=== PATIENT | male | born 1990 | race Caucasian/White ===

== ENCOUNTER 2016-07-16 20:20 | Inpatient (IN) | payer OTHER ==
[2016-07-16] MEDS ORDERED: IOPAMIDOL-300 100 ML VIAL IVP ONE (21:25)
[2016-07-16] MEDS ORDERED: SODIUM BICARBONATE ABBOJECT 50 MEQ/50 ML SYRINGE ONE (22:45)
[2016-07-16] MEDS ORDERED: LIDOCAINE-MPF 1% 5 ML VIAL ONE (22:45)
[2016-07-16] MEDS ORDERED: LIDOCAINE MPF 1%-EPI 1:200000 30 ML VIAL ONE (22:49)
[2016-07-16] MEDS ORDERED: fentaNYL 100 MCG/2 ML VIAL ONE (23:09)
[2016-07-16] MEDS ORDERED: fentaNYL 100 MCG/2 ML VIAL IVP STA (23:11)
[2016-07-16] MEDS ORDERED: ONDANSETRON 4 MG/2 ML VIAL IVP PRN (23:27)
[2016-07-17] MEDS: HYDROcod/ACETAM 5/325 MG TABLET PO PRN ×5 (00:48→20:07)
[2016-07-17] MEDS: DEXTROSE 5%-0.9% NACL 1,000 ML IV SCH ×3 (00:49→19:30)
[2016-07-17] MEDS: HYDROmorphone 1 MG/ML SYRINGE IVP PRN ×9 (01:06→23:15)
[2016-07-17] MEDS: SODIUM CHLORIDE FLUSH 0.9% 10 ML SYRINGE IVP SCH ×3 (06:28→19:30)
[2016-07-17] MEDS: PANTOPRAZOLE 40 MG TABLET PO SCH (06:33)
[2016-07-17] MEDS: SODIUM CHLORIDE FLUSH 0.9% 10 ML SYRINGE IVP PRN ×3 (08:28→12:16)
[2016-07-18] MEDS: HYDROcod/ACETAM 5/325 MG TABLET PO PRN ×6 (00:09→22:31)
[2016-07-18] MEDS: HYDROmorphone 1 MG/ML SYRINGE IVP PRN ×5 (02:01→11:33)
[2016-07-18] MEDS: DEXTROSE 5%-0.9% NACL 1,000 ML IV SCH (06:08)
[2016-07-18] MEDS: SODIUM CHLORIDE FLUSH 0.9% 10 ML SYRINGE IVP SCH ×3 (06:09→22:30)
[2016-07-18] MEDS: PANTOPRAZOLE 40 MG TABLET PO SCH (06:09)
[2016-07-19] MEDS: HYDROcod/ACETAM 5/325 MG TABLET PO PRN (03:55)
[2016-07-19] MEDS: SODIUM CHLORIDE FLUSH 0.9% 10 ML SYRINGE IVP SCH (06:46)
[2016-07-19] MEDS: PANTOPRAZOLE 40 MG TABLET PO SCH (06:46)
== END 2016-07-19 10:40 | disposition home or self-care (01) | DRG 200 ==
PROC: 0W9930Z Drainage of Right Pleural Cavity with Drainage Device, Percutaneous Approach (ICD-10-PCS; principal; 2016-07-16)
DX: S27.0XXA Traumatic pneumothorax, initial encounter (principal); S22.31XA Fracture of one rib, right side, initial encounter for closed fracture; S27.321A Contusion of lung, unilateral, initial encounter; V27.0XXA Motorcycle driver injured in collision with fixed or stationary object in nontraffic accident, initial encounter; Y92.410 Unspecified street and highway as the place of occurrence of the external cause; F17.220 Nicotine dependence, chewing tobacco, uncomplicated

== ENCOUNTER 2017-09-03 16:33 | Emergency (ER) | payer OTHER ==
[2017-09-03 16:40] VITALS: BP 140/83
--- NOTE | 2017-09-03 17:25 | ED Physician Documentation ---
History of Present Illness - Stated complaint Stated Complaint: LT HAND VS NAIL - Chief complaint Chief Complaint: General - Additonal information Additional information: hx from pt 27 male nail through index L hand think it was embedded in the bone can flex extend finger numbness to distal palmar aspect of finger Review of Systems Skin: reports: Other (puncture) Musculoskeletal: reports: Extremity pain PD PAST MEDICAL HISTORY - Past Medical History Past Medical History: No Cardiovascular: None Respiratory: None Neuro: None Endocrine/Autoimmune: None GI: None : None HEENT: Other Psych: Anxiety Musculoskeletal: Chronic back pain Derm: None - Past Surgical History Past Surgical History: Yes - Present Medications Home Medications: Ambulatory Orders Medication Instructions Recorded Confirmed No Known Home Medications [No 09/03/17 09/03/17 Known Home Medications] - Allergies Allergies/Adverse Reactions: Allergies Allergy/AdvReac Type Severity Reaction Status Date / Time No Known Drug Allergies Allergy Verified 09/03/17 16:39 - Social History Does the pt smoke?: No Smoking Status: Never smoker Does the pt drink ETOH?: Yes ETOH Use: Beer Does the pt have substance abuse?: No - Immunizations Immunizations are current?: Yes - POLST Patient has POLST: No PD ED PE NORMAL - Vitals Vital signs reviewed: Yes - Extremities Extremities: Other (L index with large puncture radial aspect prox phalange and tiny exit puncture ulnar side, _ cap refill, painful but able to fully extend, dec santion to palmar aspect of finger but not in distribution typical for digital nerves) Results - Vitals Vitals: Vital Signs - 24 hr 09/03/17 16:38 Temperature 36.6 C Heart Rate 77 Respiratory 18 Rate Blood Pressure 140/83 H O2 Saturation 100 Oxygen O2 Source Room air - Rads (name of study) finger Radiology: See rad report (+ fx one cortex non displaced no FB) PD MEDICAL DECISION MAKING - ED course ED course: puncture wound / open fx irrigated gave ancef splinted will dc on keflex with close orthopedic follow up Departure - Departure Disposition: 01 Home, Self Care Clinical Impression: Puncture wound Open fracture of finger Qualifiers: Encounter type: initial encounter Finger: index finger Phalanx: proximal Fracture alignment: nondisplaced Laterality: left Qualified Code(s): S62.641B - Nondisplaced fracture of proximal phalanx of left index finger, initial encounter for open fracture Condition: Good Instructions: ED Fx Finger Open, ED Wound Puncture General Follow-Up: [facility] [Provider Group] [facility] [Provider Group] Comments: This injury is at high risk for infection. We washed the finger carefully and gave you an antibiotic shot as well and a prescription for antibiotic pills But it is very important that you follow up with orthopedics for a recheck next week And return to the ER right away if any signs of infection develop over the weekend (redness swelling discharge, worsening pain) Wear the splint at all times except to wash the wounds and apply antibiotic ointment at least once a day Take the antibiotic as prescribed Motrin for mild to moderate pain - only take the vicodin for very severe pain Ice and elevation will help the pain too
[2017-09-03] MEDS ORDERED: IBUPROFEN 400 MG TABLET PO STA (17:26)
--- NOTE | 2017-09-03 17:57 | XRAY Preliminary Report ---
Exam: XR FINGER(S) LT IMPRESSION: Fracture at the dorsal cortex of the distal shaft of the left index finger without fractu re extension to the volar cortex or radiopaque foreign body. [facility] SITE ID: [id number]
--- NOTE | 2017-09-03 17:58 | XRAY Report ---
EXAM: LEFT SECOND DIGIT RADIOGRAPHY EXAM DATE: 09/03/2017 05:33 PM. CLINICAL HISTORY: Nail vs index finger. COMPARISON: None. TECHNIQUE: 3 views. FINDINGS: Bones: There is a transverse irregular cortical lucency at the dorsal aspect of the distal shaft of t he proximal phalanx of the left index finger measuring about 1.5 cm craniocaudal dimension and as muc h as 4 mm in AP dimension based on the lateral view. There are small approximately 2.5 mm long linear vertical bone fragments adjacent to the dorsal cortex on either sides of the osseous defect. The fra cture line does not extend through to the volar cortex. Joints: Normal. No subluxations. Soft Tissues: Mild soft tissue swelling at the left second proximal phalanx. No radiopaque foreign abena dy. IMPRESSION: Fracture at the dorsal cortex of the distal shaft of the left index finger without fractu re extension to the volar cortex or radiopaque foreign body. [facility] Referring Provider Line: [phone] SITE ID: [id number]
[2017-09-03] MEDS ORDERED: ceFAZolin 1 GM VIAL IM STA (18:11)
== END 2017-09-03 18:42 | disposition home or self-care (01) ==
LOC: ED 16:33
DX: S61.231A Puncture wound without foreign body of left index finger without damage to nail, initial encounter (principal); S62.641A Nondisplaced fracture of proximal phalanx of left index finger, initial encounter for closed fracture; W29.4XXA Contact with nail gun, initial encounter
CPT/HCPCS: 73140; 96372; 99283; A9270

== ENCOUNTER 2017-09-23 11:32 | Emergency (ER) | payer OTHER ==
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
[2017-09-23] MEDS ORDERED: LIDOCAINE MPF 1%-EPI 1:200000 30 ML VIAL SUBQ STA (12:34)
[2017-09-23] MEDS ORDERED: IBUPROFEN 600 MG TABLET PO STA (13:01)
[2017-09-23] MEDS ORDERED: ACETAMINOPHEN 325 MG TABLET PO STA (13:01)
[2017-09-23 13:19] VITALS: BP 130/69
[2017-09-23] MEDS ORDERED: BACITRACIN OINT TOP ONE (13:19)
== END 2017-09-23 13:29 | disposition home or self-care (01) ==
LOC: ED 11:32
DX: S81.812A Laceration without foreign body, left lower leg, initial encounter (principal); W29.3XXA Contact with powered garden and outdoor hand tools and machinery, initial encounter; Y99.0 Civilian activity done for income or pay
CPT/HCPCS: 12034; 99282; 99283; A9270

== ENCOUNTER 2017-09-24 07:25 | Emergency (ER) | payer OTHER ==
[2017-09-24 07:32] VITALS: BP 134/83
[2017-09-24] MEDS ORDERED: IBUPROFEN 800 MG TABLET PO STA (07:47)
[2017-09-24] MEDS ORDERED: BACITRACIN OINT TOP STA (07:47)
--- NOTE | 2017-09-24 07:51 | ED Physician Documentation ---
PD HPI WOUND RECHECK - Stated complaint Stated Complaint: WOUND CARE/L CALF - Chief complaint Chief Complaint: Laceration - Histroy obtained from History obtained from: Patient - History of Present Illness Location: Left Lower Extremity Timing - onset: Yesterday Recently seen: Emergency Dept (Yesterday) - Additional information Additional information: The patient is a 27-year-old male who presents for wound check. He cut his left lower leg yesterday with a chainsaw. He was seen in the emergency department here, and the wound was repaired with sutures. He presents this morning stating that when he pulled off the dressing this morning, he thinks some of the sutures came out. He is also requesting something for pain, stating that Tylenol is not helping. Review of Systems Constitutional: denies: Fever Skin: reports: Laceration (s) Musculoskeletal: reports: Extremity pain (Left leg.) PD PAST MEDICAL HISTORY - Past Medical History Cardiovascular: None Respiratory: None Endocrine/Autoimmune: None GI: None : None HEENT: Other Psych: Anxiety Musculoskeletal: Chronic back pain Derm: None - Past Surgical History Past Surgical History: Yes - Present Medications Home Medications: Ambulatory Orders Medication Instructions Recorded Confirmed No Known Home Medications [No 09/23/17 09/23/17 Known Home Medications] - Allergies Allergies/Adverse Reactions: Allergies Allergy/AdvReac Type Severity Reaction Status Date / Time No Known Drug Allergies Allergy Verified 09/03/17 16:39 - Social History Does the pt smoke?: No Smoking Status: Never smoker Does the pt drink ETOH?: Yes Does the pt have substance abuse?: No - Immunizations Immunizations are current?: Yes - POLST Patient has POLST: No PD ED PE NORMAL - Vitals Vital signs reviewed: Yes (Borderline hypertension initially.) - General General: Alert and oriented X 3, Well developed/nourished - HEENT HEENT: Atraumatic - Respiratory Respiratory: No respiratory distress - Derm Derm: No rash - Extremities Extremities: No edema, No calf tenderness / cord, Other (There is a 10 cm laceration on the anterior medial aspect of the left lower leg, with adjacent deep abrasions, consistent with chainsaw injury. The laceration is intact with sutures, and there is no evidence of any sutures being removed. There is no evidence of wound infection.) - Neuro Neuro: Alert and oriented X 3, No motor deficit, No sensory deficit Results - Vitals Vitals: Vital Signs - 24 hr 09/24/17 07:28 Temperature 36.6 C Heart Rate 77 Respiratory 14 Rate Blood Pressure 134/83 H O2 Saturation 100 Oxygen O2 Source Room air PD MEDICAL DECISION MAKING - ED course Complexity details: reviewed old records, d/w patient ED course: The patient presented for wound check, after being seen here yesterday for repair of a chainsaw injury to his left lower leg. His wound is intact, and there is no evidence of sutures being pulled out. Treatment in the emergency department included application of antibiotic ointment and new dressing. Ibuprofen 800 mg was administered orally. I discussed with him the expected course of healing, symptomatic treatment and outpatient follow-up, as well as potentially worrisome signs or symptoms that should prompt reevaluation in the emergency department. Departure - Departure Disposition: 01 Home, Self Care Clinical Impression: Visit for wound check Condition: Stable Instructions: ED Laceration Ext Sutr Stap Tape Comments: Keep your left leg elevated as much the time as possible. You can use ibuprofen, up to 800 mg 3 times daily, if needed for pain. Follow-up for suture removal in 10-12 days. Return to the emergency department if you develop any sign of infection, or otherwise worsening symptoms.
[2017-09-24] MEDS ORDERED: BACITRACIN OINT TOP ONE (07:59)
== END 2017-09-24 08:10 | disposition home or self-care (01) ==
LOC: ED 07:25
DX: S81.812D Laceration without foreign body, left lower leg, subsequent encounter (principal); W29.3XXD Contact with powered garden and outdoor hand tools and machinery, subsequent encounter; Z51.89 Encounter for other specified aftercare
CPT/HCPCS: 99282; 99283; A9270

== ENCOUNTER 2017-09-29 12:48 | Emergency (ER) | payer OTHER ==
[2017-09-29 12:57] VITALS: BP 134/60
--- NOTE | 2017-09-29 13:15 | ED Physician Documentation ---
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 He is having a lot of pain while working because of the heavy nature of his job. No fevers.) Review of Systems Constitutional: reports: Reviewed and negative Cardiac: reports: Reviewed and negative Respiratory: reports: Reviewed and negative PD PAST MEDICAL HISTORY - Past Medical History Past Medical History: No Cardiovascular: None Respiratory: None Endocrine/Autoimmune: None GI: None : None HEENT: Other Psych: Anxiety Musculoskeletal: Chronic back pain Derm: None - Past Surgical History Past Surgical History: Yes - Present Medications Home Medications: Ambulatory Orders Medication Instructions Recorded Confirmed No Known Home Medications [No 09/23/17 09/23/17 Known Home Medications] - Allergies Allergies/Adverse Reactions: Allergies Allergy/AdvReac Type Severity Reaction Status Date / Time No Known Drug Allergies Allergy Verified 09/03/17 16:39 - Social History Does the pt smoke?: No Smoking Status: Never smoker Does the pt drink ETOH?: Yes Does the pt have substance abuse?: No - Immunizations Immunizations are current?: Yes - POLST Patient has POLST: No PD ED PE NORMAL - Vitals Vital signs reviewed: Yes - General General: Alert and oriented X 3, No acute distress - Extremities Extremities: Other (There is a 10 cm wound to the medial left calf, it has a running suture in it, the midportion of the running suture may be 3 cm has come out and this was reapproximated with Steri-Strips. There is no evidence of infection.) - Neuro Neuro: Alert and oriented X 3, Normal speech Results - Vitals Vitals: Vital Signs - 24 hr 09/29/17 12:55 Temperature 36.4 C L Heart Rate 84 Respiratory 16 Rate Blood Pressure 134/60 H O2 Saturation 99 Oxygen O2 Source Room air Departure - Departure Disposition: 01 Home, Self Care Clinical Impression: Dehiscence of closure of skin Qualifiers: Encounter type: initial encounter Qualified Code(s): T81.31XA - Disruption of external operation (surgical) wound, not elsewhere classified, initial encounter Condition: Good Record reviewed to determine appropriate education?: Yes Comments: You may wash it with soap and water, otherwise keep it dry. Try to limit walking and climbing stairs etc. Return in approximately 5-7 days for suture removal Your blood pressure was elevated today on check into the emergency department. This does not mean that you have hypertension, it is a common phenomenon to come to the emergency department and have elevated blood pressure. I recommend that you see your primary care physician within the week to have it rechecked when you are feeling better. Forms: Activity restrictions
== END 2017-09-29 13:19 | disposition home or self-care (01) ==
LOC: ED 12:48
DX: T81.31XA Disruption of external operation (surgical) wound, not elsewhere classified, initial encounter (principal); Y83.8 Other surgical procedures as the cause of abnormal reaction of the patient, or of later complication, without mention of misadventure at the time of the procedure; R03.0 Elevated blood-pressure reading, without diagnosis of hypertension
CPT/HCPCS: 99282

== ENCOUNTER 2017-10-06 13:01 | Emergency (ER) | payer OTHER ==
[2017-10-06 13:07] VITALS: BP 126/63
--- NOTE | 2017-10-06 13:10 | ED Physician Documentation ---
PD HPI WOUND RECHECK - Stated complaint Stated Complaint: STITCH REMOVAL - Chief complaint Chief Complaint: Wound - Histroy obtained from History obtained from: Patient - History of Present Illness Location: Left Lower Extremity (13 days out from a sutured wound on the left lower extremity, he is here for suture removal. No current issues.) Review of Systems Constitutional: reports: Reviewed and negative Cardiac: reports: Reviewed and negative Respiratory: reports: Reviewed and negative PD PAST MEDICAL HISTORY - Past Medical History Cardiovascular: None Respiratory: None Endocrine/Autoimmune: None GI: None : None HEENT: Other Psych: Anxiety Musculoskeletal: Chronic back pain Derm: None - Past Surgical History Past Surgical History: Yes - Present Medications Home Medications: Ambulatory Orders Medication Instructions Recorded Confirmed No Known Home Medications [No 09/23/17 09/23/17 Known Home Medications] - Allergies Allergies/Adverse Reactions: Allergies Allergy/AdvReac Type Severity Reaction Status Date / Time No Known Drug Allergies Allergy Verified 09/03/17 16:39 - Social History Does the pt smoke?: No Smoking Status: Never smoker Does the pt drink ETOH?: Yes Does the pt have substance abuse?: No - Immunizations Immunizations are current?: Yes - POLST Patient has POLST: No PD ED PE NORMAL - Vitals Vital signs reviewed: Yes - General General: Alert and oriented X 3, No acute distress - Extremities Extremities: Other (Healing 10 cm wound on the left calf medially with sutures in place that were removed without issue during exam. These were replaced with Steri-Strips.) - Neuro Neuro: Alert and oriented X 3, Normal speech Results - Vitals Vitals: Vital Signs - 24 hr 10/06/17 13:02 Temperature 36.4 C L Heart Rate 63 Respiratory 116 H Rate Blood Pressure 126/63 O2 Saturation 98 Oxygen O2 Source Room air Departure - Departure Disposition: 01 Home, Self Care Clinical Impression: Visit for suture removal Condition: Good
== END 2017-10-06 13:14 | disposition home or self-care (01) ==
LOC: ED 13:01
DX: S81.812D Laceration without foreign body, left lower leg, subsequent encounter (principal); X58.XXXD Exposure to other specified factors, subsequent encounter
CPT/HCPCS: 99281; 99283

== ENCOUNTER 2018-07-11 17:38 | Emergency (ER) | payer SELFPAY ==
--- NOTE | 2018-07-11 20:28 | ED Physician Documentation ---
PD HPI URI - Stated complaint Stated Complaint: EAR PX - Chief complaint Chief Complaint: Heent - History obtained from History obtained from: Patient - History of Present Illness Timing - onset: How many weeks ago (1-2) Timing duration: Weeks (1-2 weeks of congestion and some sinus pressure. Now with ear pain as well, with diminished hearing left more.) Associated symptoms: Ear pain, Nasal congestion, Sinus pain. No: Fever, Sore throat, Dry cough, Dyspnea, NVD Similar symptoms before: Has not had sx before Recently seen: Not recently seen Review of Systems Constitutional: denies: Fever, Chills Ears: reports: Ear pain Nose: reports: Congestion, Sinus pressure / pain Throat: denies: Sore throat Respiratory: denies: Cough Neurologic: denies: Focal weakness, Numbness, Altered mental status, Headache PD PAST MEDICAL HISTORY - Past Medical History Cardiovascular: None Respiratory: None Endocrine/Autoimmune: None GI: None : None HEENT: Other Psych: Anxiety Musculoskeletal: Chronic back pain Derm: None - Past Surgical History Past Surgical History: Yes - Present Medications Home Medications: Ambulatory Orders Medication Instructions Recorded Confirmed Amoxicillin 500 mg PO TID #21 capsule 07/11/18 Dexamethasone [Decadron] 4 mg PO DAILY #5 tablet 07/11/18 - Allergies Allergies/Adverse Reactions: Allergies Allergy/AdvReac Type Severity Reaction Status Date / Time No Known Drug Allergies Allergy Verified 07/11/18 17:43 - Social History Does the pt smoke?: No Smoking Status: Never smoker Does the pt drink ETOH?: Yes Does the pt have substance abuse?: No - Immunizations Immunizations are current?: Yes - POLST Patient has POLST: No PD ED PE NORMAL - Vitals Vital signs reviewed: Yes - General General: Alert and oriented X 3, No acute distress, Well developed/nourished - HEENT HEENT: PERRL, EOMI, Moist mucous membranes, Pharynx benign, Other (frontal sinus tender to percussion). No: Ears normal (both with fluid behind eardrums. Left with moderate redness, only mild on left. ) - Neck Neck: Supple, no meningeal sign, Other (anterior adenopathy) - Cardiac Cardiac: RRR, No murmur - Respiratory Respiratory: Clear bilaterally - Abdomen Abdomen: Soft, Non tender - Derm Derm: Normal color, Warm and dry - Neuro Neuro: Alert and oriented X 3, No motor deficit, Normal speech Results - Vitals Vitals: Oxygen O2 Source Room air PD MEDICAL DECISION MAKING - ED course Complexity details: considered differential, d/w patient Departure - Departure Disposition: 01 Home, Self Care Clinical Impression: Otitis media Qualifiers: Otitis media type: suppurative Chronicity: acute Laterality: bilateral Recurrence: non-recurrent Spontaneous tympanic membrane rupture: without spontaneous rupture Qualified Code(s): H66.003 - Acute suppurative otitis media without spontaneous rupture of ear drum, bilateral Condition: Stable Record reviewed to determine appropriate education?: Yes Instructions: ED Otitis Media Acute Adult Prescriptions: Amoxicillin 500 mg PO TID #21 capsule Dexamethasone [Decadron] 4 mg PO DAILY #5 tablet Comments: Amoxicillin antibiotic 3 times a day for a week. Decadron steroid for inflammation daily for 5 days. Use Tylenol or ibuprofen if needed for fevers or pains. Also fruit picker some antihistamine such as cetirizine/Zyrtec or Benadryl/diphenhydramine use daily for the next couple of weeks. Recheck if not improved over the next several days to a week. Discharge Date/Time: 07/11/18 21:09
[2018-07-11] MEDS ORDERED: AMOXICILLIN 250 MG CAPSULE PO STA (21:02)
[2018-07-11] MEDS ORDERED: CETIRIZINE 10 MG TABLET PO STA (21:02)
[2018-07-11] MEDS ORDERED: DEXAMETHASONE 10 MG/ML VIAL PO STA (21:02)
[2018-07-11 21:09] VITALS: BP 123/66
[2018-07-11] MEDS ORDERED: CHERRY SYRUP 10 ML UDC PO ONE (21:10)
== END 2018-07-11 21:09 | disposition home or self-care (01) ==
LOC: ED 17:38
DX: H66.003 Acute suppurative otitis media without spontaneous rupture of ear drum, bilateral (principal)
CPT/HCPCS: 99283; A9270